=== PATIENT | female | born 1950 | race African-American/Black ===

== ENCOUNTER 2023-01-21 07:02 | Emergency (ER) | payer OTHER ==
[~2023-01-21] VITALS: Ht 162.6 cm; Wt 64.0 kg
[2023-01-21 07:08] VITALS: O2SAT 99
[2023-01-21 08:24] LABS: HEMATOCRIT. 40.2 % (36.0-48.0); HEMOGLOBIN. 13.4 g/dL (12.0-16.0); MEAN CORPUSCULAR HGB CONC 33.3 g/dL (31.0-37.0); MEAN CORPUSCULAR VOLUME 96.1 fL (81.0-99.0); MEAN PLATELET VOLUME 7.6 fl (7.4-10.4); PLATELET 214 x1000/uL (130-400); RED BLOOD CELL COUNT 4.18 mill/uL (4.2-5.4); RED CELL DISTRIBUTION WIDTH 14.6 % (11.6-14.6)
[2023-01-21 08:30] LABS: DIFFERENTIAL COMMENT 1
[2023-01-21 08:36] LABS: CHLORIDE 106 mEq/L (98-107); INDEX HEMOLYSI 1 (1-3); INDEX ICTERIC 1 (1-4); INDEX LIPEMIC 1 (1-3); POTASSIUM 4.6 mEq/L (3.5-5.1); SODIUM 138 mEq/L (136-145)
[2023-01-21 08:54] LABS: ALANINE AMINOTRANSFERASE 13 IU/L (13-61); ALBUMIN 3.2 g/dL (3.4-5.0); ASPARTATE AMINOTRANSFERASE 12 IU/L (15-37); BILIRUBIN TOTAL 0.7 mg/dL (0.1-1.0); CARBON DIOXIDE 26 mEq/L (21-32); CREATININE 0.7 mg/dL (0.6-1.3); GLUCOSE 162 mg/dL (70-105); NT PRO B-TYPE NATRIURETIC PEP 148 pg/mL (5-125); PROTEIN TOTAL 6.8 g/dL (6.0-8.3); TROPONIN I HIGH SENSITIVITY 7 ng/L (<54); UREA NITROGEN BLOOD 10 mg/dL (7-21)
[2023-01-21] MEDS ORDERED: DEXAMETHASONE 10 MG/ML VIAL IV ONE (09:45)
[2023-01-21 10:51] LABS: PLATELET ESTIMATE NORMAL
[2023-01-21] MEDS ORDERED: MORPHINE SULFATE 4 MG/ML CPJ (NOT FOR IM USE) IV ONE (11:30)
[2023-01-21] MEDS ORDERED: ONDANSETRON HCL 4MG/2ML INJ IV ONE (11:30)
[2023-01-21 12:53] VITALS: BP 126/65; PULSE 88; RESP 18; TEMP 98.4
== END 2023-01-21 13:08 | disposition short-term general hospital (02) ==
LOC: ER 07:49 → CANBEDREQ 11:21 → ER 13:08
DX: U07.1 COVID-19 (principal); S72.91XA Unspecified fracture of right femur, initial encounter for closed fracture; M97.11XA Periprosthetic fracture around internal prosthetic right knee joint, initial encounter; J44.1 Chronic obstructive pulmonary disease with (acute) exacerbation; E11.9 Type 2 diabetes mellitus without complications; I10 Essential (primary) hypertension; W50.2XXA Accidental twist by another person, initial encounter; Y93.89 Activity, other specified; Y92.89 Other specified places as the place of occurrence of the external cause; Y99.8 Other external cause status
CPT/HCPCS: 99285; 96374; 71045; 96375; 87426; 80053; 83880; 85025; 84484; 87804 ×2; 36415; 73502; 73560; 93005; L1830; J1100; J2405; J2270; C9803

== ENCOUNTER 2024-10-27 08:19 | Inpatient (IN) | payer OTHER ==
[~2024-10-27] VITALS: Ht 167.6 cm; Wt 61.7 kg
[2024-10-27] MEDS: METHYLPREDNISOLONE SOD SUCC 125MG/2ML (ACT-O-VIAL) IV STA (08:39)
[2024-10-27] MEDS: MAGNESIUM 2 G PREMIX 50 ML IV ONE (08:39)
[2024-10-27 08:49] VITALS: RESP 26
[2024-10-27] MEDS: ALBUTEROL (0.083%) 2.5MG/3ML NEB HHN STA (08:50)
[2024-10-27] MEDS: IPRATROPIUM BROMIDE (0.02%) 0.5MG/2.5ML NEB HHN STA (08:50)
[2024-10-27 08:59] LABS: BASOPHILS % 0.3 % (0.0-2.0); EOSINOPHILS % 2.1 % (0.0-5.0); HEMATOCRIT. 40.8 % (36.0-48.0); HEMOGLOBIN. 13.2 g/dL (12.0-16.0); LYMPHOCYTES % 21.8 % (20.0-50.0); MEAN CORPUSCULAR HGB CONC 32.3 g/dL (31.0-37.0); MEAN PLATELET VOLUME 7.7 fl (7.4-10.4); NEUTROPHILS % 70.8 % (40.0-76.0); PLATELET 228 x1000/uL (130-400); RED BLOOD CELL COUNT 4.38 mill/uL (4.2-5.4); RED CELL DISTRIBUTION WIDTH 14.4 % (11.6-14.6); WHITE BLOOD COUNT 8.1 x1000/uL (4.5-11.0)
[2024-10-27 09:09] LABS: CARBON DIOXIDE 27 mEq/L (21-32); CHLORIDE 107 mEq/L (98-107); POTASSIUM 3.9 mEq/L (3.5-5.1); SODIUM 140 mEq/L (136-145)
[2024-10-27 09:10] LABS: CALCIUM 9.9 mg/dL (8.7-10.4)
[2024-10-27 09:14] LABS: CREATININE 0.7 mg/dL (0.6-1.0); GLUCOSE 156 mg/dL (70-105)
[2024-10-27 09:15] LABS: UREA NITROGEN BLOOD 8 mg/dL (9-23)
[2024-10-27 09:17] LABS: TROPONIN I HIGH SENSITIVITY 5 ng/L (3.0-34)
[2024-10-27] MEDS ORDERED: GUAIFENESIN 200MG/10ML SUGAR FREE UDC PO PRN (11:00)
[2024-10-27] MEDS ORDERED: ACETAMINOPHEN 325MG TABLET PO PRN (11:00)
[2024-10-27] MEDS ORDERED: ONDANSETRON HCL 4MG/2ML INJ IV PRN (11:00)
[2024-10-27] MEDS ORDERED: DEXTROSE 50% WATER 50ML SYRINGE IV PRN ×2 (11:00→14:45)
[2024-10-27] MEDS ORDERED: MAGNESIUM/ALUMINUM HYDROXIDE/SIMETHICONE 30ML UDC PO PRN (11:00)
[2024-10-27] MEDS ORDERED: IPRATROPIUM/ALBUTEROL 0.5-3(2.5)MG/3ML NEB HHN PRN (11:00)
[2024-10-27] MEDS ORDERED: CLONIDINE 0.1MG TABLET PO PRN (11:00)
[2024-10-27] MEDS ORDERED: DOCUSATE SODIUM 100MG CAPSULE PO PRN (11:00)
[2024-10-27 11:10] VITALS: BP 141/73; PULSE 103; RESP 20; TEMP 36.4
[2024-10-27 12:00] VITALS: BP 141/73; PULSE 101; RESP 20; TEMP 36.5; O2SAT 97
[2024-10-27] MEDS: BLOOD SUGAR DIAGNOSTIC STRIP TEST SCH ×2 (13:09→17:44)
[2024-10-27] MEDS: AZITHROMYCIN 500MG/250ML 250 ML IV SCH (13:09)
[2024-10-27] MEDS: AMLODIPINE 10MG TABLET PO SCH (13:10)
[2024-10-27] MEDS: METHYLPREDNISOLONE SOD SUCC 125MG/2ML (ACT-O-VIAL) IV SCH (13:10)
[2024-10-27 16:00] VITALS: BP 147/73; PULSE 99; RESP 20; TEMP 36.3; O2SAT 99
[2024-10-27 17:16] LABS: TROPONIN I HIGH SENSITIVITY 6 ng/L (3.0-34)
[2024-10-27 17:17] LABS: CREATINE KINASE 70 IU/L (34-145)
[2024-10-27 17:40] LABS: CLARITY URINE CLEAR (CLEAR); COLOR URINE YELLOW (YELLOW); GLUCOSE URINE NEGATIVE (NEGATIVE); KETONES URINE 1+ (NEGATIVE); LEUKOCYTE ESTERASE URINE NEGATIVE (NEGATIVE); NITRITE URINE NEGATIVE (NEGATIVE); OCCULT BLOOD URINE NEGATIVE (NEGATIVE); PROTEIN URINE TRACE (NEGATIVE); SPECIFIC GRAVITY URINE 1.021 (1.005-1.030)
[2024-10-27 17:52] LABS: RBC URINE 0-2 /hpf (0-2); SQUAMOUS EPITHELIAL CELL URINE 1+ /lpf (RARE/1+); WBC URINE 0-2 /hpf (0-2)
[2024-10-27 17:53] LABS: *AMPHETAMINES SCREEN URINE NEGATIVE (NEGATIVE); *BARBITURATES SCREEN URINE NEGATIVE (NEGATIVE); *BENZODIAZEPINES SCREEN URINE NEGATIVE (NEGATIVE); *COCAINE SCREEN URINE NEGATIVE (NEGATIVE); BACTERIA URINE 1+; CANNABINOID URINE SCREEN NEGATIVE (NEGATIVE); ECSTASY MDMA SCREEN URINE NEGATIVE (NEGATIVE); METHADONE URINE SCREEN NEGATIVE (NEGATIVE); OPIATES URINE SCREEN NEGATIVE (NEGATIVE); PHENCYCLIDINE URINE SCREEN NEGATIVE (NEGATIVE)
[2024-10-27] MEDS ORDERED: ATOR10TA69 PO (18:27)
[2024-10-27] MEDS ORDERED: AMLO10TA80 PO (18:27)
[2024-10-27] MEDS ORDERED: MONT4GRA14 PO (18:27)
[2024-10-27] MEDS ORDERED: METF-1149 PO (18:27)
[2024-10-27] MEDS: INSULIN LISPRO 100 UNITS/ML SUBCUT SCH (18:40)
[2024-10-27 20:00] VITALS: BP 139/63; PULSE 92; RESP 20; TEMP 36.3; O2SAT 95
[2024-10-27 20:30] VITALS: PULSE 80; RESP 20; O2SAT 99
[2024-10-27] MEDS: IPRATROPIUM/ALBUTEROL 0.5-3(2.5)MG/3ML NEB HHN SCH (20:30)
[2024-10-27 20:58] LABS: BG BASE EXCESS 1.4 mmol/L (-2.0-3.0); BG CARBOXYHEMOGLOBIN 1.2 % (0.5-1.5); BG DEOXYHEMOGLOBIN 10.2 % (0.0-5.0); BG HCO3 ACT 25.7 mmol/L (21.0-28.0); BG METHEMOGLOBIN 0.1 % (0.5-1.5); BG OXYGEN SATURATION 89.7 % (94.0-98.0); BG OXYHEMOGLOBIN 88.5 % (94.0-98.0); BG PCO2 39.3 mmHg (32.0-45.0); BG PH 7.433 (7.350-7.450); BG PO2 56.4 mmHg (83.0-108.0); BG SAMPLE SITE RIGHT RADIAL; BG VENT MODE ROOM AIR
[2024-10-27] MEDS: FAMOTIDINE 20MG TABLET PO SCH (21:00)
[2024-10-27] MEDS: ATORVASTATIN CALCIUM 20MG TABLET PO SCH (22:04)
[2024-10-27] MEDS: MELATONIN 3MG TABLET PO PRN (22:04)
[2024-10-28] VITALS (8 sets, daily range): BP systolic 116–135; BP diastolic 60–73; PULSE 84–101; RESP 10–20; TEMP 36.1–36.6; O2SAT 97–100
[2024-10-28 00:11] LABS: CREATINE KINASE 73 IU/L (34-145); TROPONIN I HIGH SENSITIVITY 4 ng/L (3.0-34)
[2024-10-28 08:23] LABS: HEMOGLOBIN. 12.8 g/dL (12.0-16.0); MEAN CORPUSCULAR HEMOGLOBIN 30.5 pg (28.0-32.0); MEAN CORPUSCULAR HGB CONC 32.9 g/dL (31.0-37.0); MEAN CORPUSCULAR VOLUME 92.8 fL (81.0-99.0); MEAN PLATELET VOLUME 8.1 fl (7.4-10.4); PLATELET 217 x1000/uL (130-400); RED BLOOD CELL COUNT 4.21 mill/uL (4.2-5.4); RED CELL DISTRIBUTION WIDTH 14.4 % (11.6-14.6); WHITE BLOOD COUNT 8.1 x1000/uL (4.5-11.0)
[2024-10-28 08:24] LABS: DIFFERENTIAL COMMENT 1
[2024-10-28 09:57] LABS: CARBON DIOXIDE 25 mEq/L (21-32); CHLORIDE 102 mEq/L (98-107); POTASSIUM 4.3 mEq/L (3.5-5.1); SODIUM 137 mEq/L (136-145)
[2024-10-28 09:58] LABS: CALCIUM 9.5 mg/dL (8.7-10.4)
[2024-10-28 10:03] LABS: CREATININE 0.7 mg/dL (0.6-1.0); GLUCOSE 214 mg/dL (70-105); TRIGLYCERIDE 58 mg/dL (0-150); UREA NITROGEN BLOOD 14 mg/dL (9-23)
[2024-10-28 10:04] LABS: LDL CHOLESTEROL 23 mg/dL (5-100); T4 FREE 1.18 ng/dL (0.89-1.76)
[2024-10-28 10:05] LABS: CHOLESTEROL 106 mg/dL (<200); HDL CHOLESTEROL 63 mg/dL (>65); THYROID STIMULATING HORMONE 0.28 uIU/mL (0.55-4.78)
[2024-10-28 12:00] LABS: PLATELET ESTIMATE NORMAL
[2024-10-28] MEDS: AZITHROMYCIN 500MG/250ML 250 ML IV SCH (12:49)
== END 2024-10-28 20:20 | disposition short-term general hospital (02) | DRG 189 ==
LOC: ER 08:19 → 6WST 09:29 → EDBEDREQ 09:37 → EDBEDREQTM 09:37 → EDBEDREQSVC 10:30 → ENRESERV 10:42
PROVIDERS: ADMIT Internal Medicine; ATTEND Internal Medicine
PROC: 5A09357 Assistance with Respiratory Ventilation, Less than 24 Consecutive Hours, Continuous Positive Airway Pressure (ICD-10-PCS; principal; 2024-10-27)
DX: J96.01 Acute respiratory failure with hypoxia (principal); J12.9 Viral pneumonia, unspecified; J44.1 Chronic obstructive pulmonary disease with (acute) exacerbation; I16.0 Hypertensive urgency; E11.65 Type 2 diabetes mellitus with hyperglycemia; G47.00 Insomnia, unspecified; E78.5 Hyperlipidemia, unspecified; I10 Essential (primary) hypertension; F41.9 Anxiety disorder, unspecified; Z79.84 Long term (current) use of oral hypoglycemic drugs; Z63.4 Disappearance and death of family member; Z79.899 Other long term (current) drug therapy
CPT/HCPCS: 36415; 36600; 71045; 80048; 80061; 80305; 81003; 82375; 82550; 82805; 82962; 83036; 83735; 83880; 84439; 84443; 84484; 85025; 93005; 93880; 94070; 94640; 94660; 98960; 99291; J0456; J1815; J2919; J3475